=== PATIENT | female | born 1935 ===

== ENCOUNTER → 2020-02-10 | Day surgery (SDC) | payer OTHER ==
[~2020-02-10] MED LIST: ADULT LOW DOSE81 M1 PO; LOVASTATIN20 MG PO; MACROBID 100 M100 MG PO; ULTRACET PO; ZESTORETIC 10-1 EACH PO
== END | disposition home or self-care (01) ==
LOC: ADM 12-10 08:30 → CIR.AMB 12-16 08:30 → EDBD 12-16 08:30 → CIR.AMB 08:30
DX: N39.3 Stress incontinence (female) (male) (principal)